=== PATIENT | female | born 1960 | race Caucasian/White ===

== ENCOUNTER 2023-10-04 13:30 | Day surgery (SDC) | payer BC, SELFPAY ==
--- NOTE | 2023-10-04 13:50 | FL_ITS ---
The [address] [address] Patient Name: MELVIN BANKS MRN: [id number] date: 1960 Sex: F Assigned Patient Location: [place] Current Patient Location: [place] Accession/Order Number: [id number] Exam Date: 10/04/2023 13:50 Report Date: 10/04/2023 15:51 At the request of: AMAURI AGUILLON Procedure: FL hip inj RT EXAMINATION: FL hip inj RT, FL guided needle placement HISTORY: Right Hip Pain M16.11 COMPARISON: No relevant comparison available. FLUORO DOSE: mGy Reference air kerma (Ka,r) TECHNIQUE: A joint injection was performed in the usual sterile manner after obtaining informed consent. Standard level fluoroscopic mode of operation utilized. FINDINGS: JOINT: Right hip. NEEDLE: 22 gauge, 3.5 spinal needle. MEDICATION: 4cc buffered 1% lidocaine for subcutaneous anesthesia Mixture of Kenalog 40 mg, 0.5% Bupivacaine 2 mL and Omnipaque 300 10mL was injected into the joint space. TECHNIQUE: Anterior approach with prior localization of the femoral artery. A single stick was successful in gaining access to the joint space. CLINICAL: 6/10 pain preinjection. 2/10 pain post injection COMPLICATIONS: None. OTHER: Negative. FL/FL hip inj RT IMPRESSION: Technically successful right hip therapeutic arthrogram Electronically authenticated by: TIFFANIE MANCILLA Date: 10/04/2023 15:51
--- NOTE | 2023-10-04 13:50 | FL_ITS ---
The [address] [address] Patient Name: MELVIN BANKS MRN: [id number] date: 1960 Sex: F Assigned Patient Location: [place] Current Patient Location: [place] Accession/Order Number: [id number] Exam Date: 10/04/2023 13:50 Report Date: 10/04/2023 15:51 At the request of: AMAURI AGUILLON Procedure: FL guided needle placement EXAMINATION: FL hip inj RT, FL guided needle placement HISTORY: Right Hip Pain M16.11 COMPARISON: No relevant comparison available. FLUORO DOSE: mGy Reference air kerma (Ka,r) TECHNIQUE: A joint injection was performed in the usual sterile manner after obtaining informed consent. Standard level fluoroscopic mode of operation utilized. FINDINGS: JOINT: Right hip. NEEDLE: 22 gauge, 3.5 spinal needle. MEDICATION: 4cc buffered 1% lidocaine for subcutaneous anesthesia Mixture of Kenalog 40 mg, 0.5% Bupivacaine 2 mL and Omnipaque 300 10mL was injected into the joint space. TECHNIQUE: Anterior approach with prior localization of the femoral artery. A single stick was successful in gaining access to the joint space. CLINICAL: 6/10 pain preinjection. 2/10 pain post injection COMPLICATIONS: None. OTHER: Negative. FL/FL guided needle placement IMPRESSION: Technically successful right hip therapeutic arthrogram Electronically authenticated by: TIFFANIE MANCILLA Date: 10/04/2023 15:51
[2023-10-04] MEDS: LIDOCAINE HCL 10 ML, SODIUM BICARBONATE 1 MEQ INJ (15:10)
[2023-10-04] MEDS: TRIAMCINOLONE ACETONIDE 40 MG/ML VIAL INJ (15:10)
[2023-10-04] MEDS: BUPIVACAINE HCL 0.5% PF 50 MG/10 ML VIAL 2 ML INJ (15:10)
--- NOTE | 2023-10-04 15:46 | SUR.PREOP ---
10/02/23 Pt instructed on procedure, date, time, and prep.
== END 2023-10-04 15:35 | disposition home or self-care (01) ==
PROVIDERS: Radiology Diagnostic Radiology; PCP Nurse Practitioner; Visit Provider Nurse Practitioner Family
DX: M16.11 Unilateral primary osteoarthritis, right hip (principal); M25.551 Pain in right hip
CPT/HCPCS: 20610; 77002; J0665; J3301; Q9967